=== PATIENT | male | born 1985 | race African-American/Black ===

== ENCOUNTER 2024-12-09 10:17 | Inpatient (IN) | payer BC, SELFPAY ==
[2024-12-09] VITALS (21 sets, daily range): BP systolic 112–190; BP diastolic 54–97; PULSE 72–86; BMI 45.1; BMI 44.3
[2024-12-09 03:38] LABS: Hematocrit 23.3 % (39.0-52.0); Hemoglobin 6.7 g/dL (13.0-18.0); Mean Corp Hgb Conc. 28.8 g/dL (33.0-37.0); Mean Corpuscular Volume 75.6 fL (80.0-94.0); Nucleated Red Blood Cells % 0 % (-); Platelet Count 356 10^3/uL (130-400); Red Cell Dist. Width 16.9 % (11.5-14.5)
[2024-12-09 03:58] LABS: ALT (SGPT) 14 U/L (0-50); AST (SGOT) 15 U/L (17-59); Albumin 4.4 g/dl (3.5-5.0); Alkaline Phosphatase 53 U/L (38-126); Blood Urea Nitrogen 19 mg/dl (9-20); Calcium 9.2 mg/dl (8.4-10.2); Carbon Dioxide 27 mmol/L (22-30); Chloride 107 mmol/L (98-107); Glucose 121 mg/dl (70-99); Potassium 4.2 mmol/L (3.5-5.1); Sodium 140 mmol/L (135-145); Total Protein 7.2 g/dl (6.3-8.2); eGFR > 60.00
[2024-12-09 04:05] LABS: Troponin I < 0.012 ng/ml
--- NOTE | 2024-12-09 06:31 | ED.GENMED ---
History of Present Illness
General
Chief Complaint: Breathing Problem
Source: patient
Exam Limitations: none
Time Seen by Provider: 12/09/24 06:09
History of Present Illness
History of Present Illness:
See MDM
Past History
Past History
ED Past Medical History: None
ED Past Surgical History: Other (Hernia Repair)
Social History
Tobacco: Non-smoker
Alcohol: None
Phy Exam
Physical Exam
Physical Exam:
See MDM
Course
Orders/Labs/Results
Orders:
Orders
12/09/24 02:38
Electrocardiogram (*1) Urgent
Reason for Study: Shortness of Breath
EKG- Treatment ONCE
Chest [CR Chest - 2 Views ] Urgent
Comment:
Reason For Exam: SHORT OF BREATH
12/09/24 03:19
Complete Blood Count/With Diff Urgent
Comprehensive Metabolic Panel Urgent
Iron Urgent
Comment: ADD ON
Total Iron Binding Urgent
Comment: ADD ON
Troponin I Urgent
12/09/24 06:21
Blood Bank Products [* Blood Bank Products] Urgent
's Orders: Devendra Moulton DO
Blood Bank Products: *Packed RBC Leuko(PRBC's)
Quantity: 2
Transfuse Today: Yes
Reason: Anemia
12/09/24 06:30
Add On- LAB Urgent
Tests Added?: Iron, TIBC
12/09/24 06:31
Type+Screen Urgent
12/09/24 07:13
ABO2 Routine
[employer] Wristband Number:
Associate notified that ABO2 has been ordered: [id number]
Date: 12/09/24
Time: 07:13
Front End Web Designer ID: [id number]
12/09/24 07:16
Consult Gastroenterology [GASTROINTESTINAL CONSULT] Routine
Consulting Provider: Cindy Lagunas
Was physician already notified: Yes
Abnormal Lab Results
12/09/24
03:19
RBC 3.08 L 10^6/uL
(4.70-6.10)
Hgb 6.7 L* g/dL
(13.0-18.0)
Hct 23.3 L %
(39.0-52.0)
MCV 75.6 L fL
(80.0-94.0)
MCH 21.8 L pg
(27.0-31.0)
MCHC 28.8 L g/dL
(33.0-37.0)
RDW 16.9 H %
(11.5-14.5)
Absolute Monos (auto) 0.7 H 10^3/uL
(0.1-0.6)
Glucose 121 H mg/dl
(70-99)
AST 15 L U/L
(17-59)
12/09/24 03:19
12/09/24 03:19
Vital Signs
Initial and Last Documented VS:
Initial Vital Signs
Temp Pulse Resp BP Pulse Ox
97.8 F 80 20 190/84 98
12/09/24 02:35 12/09/24 02:35 12/09/24 02:35 12/09/24 02:35 12/09/24 02:35
Last Documented Vital Signs
Temp Pulse Resp BP Pulse Ox
98.4 F 73 23 132/62 95
12/09/24 05:25 12/09/24 07:00 12/09/24 07:00 12/09/24 07:00 12/09/24 07:00
MDM/Problems Addressed
Differential Diagnosis Includes:
Note:
CHIEF COMPLAINT(S)
- Shortness of breath
- Chest constriction
- Dizziness
HISTORY OF PRESENT ILLNESS
The patient is a 39-year-old male who presents with shortness of breath, dizziness, and a sensation of constriction in the chest. These symptoms have been ongoing for approximately two to three weeks. The patient reports that the chest constriction
and shortness of breath are intermittent. He notes that he becomes easily winded during activities such as climbing stairs. He has been informed by his primary care physician of low hemoglobin levels. he states it was 7.7 a few days ago. The
patient denies recent occurrences of black or red stools, but he acknowledges seeing blood in his stool over a month ago. There is no recent history of fever or viral illnesses.
During the discussion, symptomatic anemia was identified due to low hemoglobin levels, explaining his fatigue and shortness of breath. An immediate plan for blood transfusion was proposed due to hemoglobin levels being less than 7 g/dL, indicating a
need for transfusion. The patient expressed understanding that the underlying causes of anemia could include blood loss, inadequate production, or increased destruction of red blood cells. However, concerns such as bone marrow issues were not highly
suspected since his white blood cells and platelets were reported as normal.
The patients condition was stable at presentation, and vital signs indicated compensation for chronic anemia. The patient has no family history of blood disorders except for a nephew with a history of aplastic anemia.
PHYSICAL EXAM
General: Alert, no acute distress.
Skin: Warm, dry.
Head: Normocephalic, atraumatic
Neck: Appears supple, trachea midline.
Eyes, Ears, Nose, Mouth, and Throat: Oral mucosa moist.
Cardiovascular: No signs of cyanosis. Regular rate and rhythm
Respiratory: Respirations are non-labored. Lungs clear
Rectal: Nonthrombosed external hemorrhoids. No stool in rectal vault. The clear mucus was mildly guaiac positive
Abdomen: Non-distended
Musculoskeletal: No deformities
Neurological: No focal neurological deficit observed.
Psychiatric: Cooperative, appropriate mood and affect.
PROBLEM LIST
- Acute: Symptomatic anemia with shortness of breath and chest constriction
PLAN
- Proceed with blood transfusion due to significant anemia (hemoglobin 6.7 g/dL)
- Consider follow-up with gastrointestinal specialists to explore potential sources of gastrointestinal bleeding
- Arrange for observation and monitoring to facilitate a comprehensive workup and ensure stability until blood levels improve
DIFFERENTIAL DIAGNOSIS
The Differential Diagnosis includes, in no particular order and is not limited to:
1. Iron deficiency anemia
2. Pernicious anemia
3. Gastrointestinal bleeding
4. Hemolytic anemia
5. Bone marrow disorders
6. Chronic kidney disease
7. Vitamin B12 deficiency
8. Folate deficiency
9. Anemia of chronic disease
10. Thalassemia
My independent EKG interpretation is:
- Rhythm: Sinus rhythm
- Heart rate: 85 beats per minute
- Dix: Normal axis
- Intervals: Within normal limits
- Abnormalities: No ST-segment elevation myocardial infarction (STEMI) detected
SUMMARY OF ENCOUNTER
The patient, a 39-year-old male, presented to the emergency department with symptoms of shortness of breath, chest constriction, and dizziness ongoing for approximately two to three weeks. Upon evaluation, symptomatic anemia was identified due to
significantly low hemoglobin levels of 6.7 g/dL. The patient was informed of the need for an immediate blood transfusion due to the anemia. Anemia is suspected to be related to gastrointestinal issues, possibly a source of bleeding as evidenced by a
mild amount of blood found on rectal examination.
DISPOSITION
Admit to the hospitalist service for further investigation and management.
ASSESSMENT
The patients symptoms of shortness of breath and dizziness, combined with low hemoglobin levels, indicate symptomatic anemia, likely secondary to gastrointestinal bleeding or other causes to be determined.
PLAN
- Administer two units of packed red blood cells due to significant anemia.
- Order iron studies to investigate possible iron deficiency anemia.
- Request a gastrointestinal evaluation to identify potential sources of bleeding.
- Admit to hospitalist service for continued observation and further diagnostic workup.
INDEPENDENT REVIEW OF LABS AND INTERPRETATION OF TESTS
My independent review of the hemoglobin levels indicates severe anemia with a value of 6.7 g/dL, necessitating blood transfusion.
MEDICATION RECONCILIATION
Administer two units of packed red blood cells.
MEDICAL DECISION MAKING
- Number and Complexity of Problems Addressed: Chronic conditions affecting care include symptomatic anemia with consideration of differential diagnoses: iron deficiency anemia, gastrointestinal bleeding, and others as previously listed.
- Data:
Category 1
- My independent EKG interpretation: Sinus rhythm, heart rate of 85 beats per minute, normal axis, intervals within normal limits, no STEMI detected.
Category 3
- Discussion of management with hospitalist for patient admission and further workup.
-Risk:
- Due to the severity of anemia, immediate hospitalization was required for stabilization via blood transfusion and further diagnostic evaluation.
DIAGNOSIS
1. Symptomatic anemia, ICD-10: D64.9
2. Iron deficiency anemia suspected, ICD-10: D50.9 (pending further studies)
3. Possible gastrointestinal bleeding, ICD-10: K92.2 (awaiting GI evaluation)
*Pulse Oximetry
SaO2: 98
Oxygen Mode of Delivery: Room air
Patient hypoxic: no
*Critical Care Note
Total Time (30-74mins, 75-104mins- exclusive of procedures): 33 min
comment:
The high probability of a clinically significant, sudden or life threatening deterioration of the cardiovascular and GI system(s) required my full and direct attention, intervention and personal management. The aggregate critical care time was 33
minutes. This time is in addition to time spent performing reported procedures but includes the following:
[x] Data Review and interpretation
[x] Patient assessment and monitoring of vital signs
[x] Documentation
[x] Medication orders and management
ED Attending Note
-
Portions of this chart may have been created with voice recognition software.� Occasional wrong word or��sound alike� substitutions may have occurred due to the inherent limitations of voice recognition software.
Discharge Plan
Departure
Patient Disposition: Admit
Date of Disposition: 12/09/24
Time of Disposition: 07:19
Admit to: Med/Surg
Presentation/result/management discussed w/ accepting MD/DO: Hospitalist
Discharge Problem:
Symptomatic anemia
Referrals:
KWAN PULIDO PA [Family Provider, Family Practice]
Interventions
Interventions:
*Risk Screen - Suicide Last Done: 12/09/24 02:35
*General Assessment Last Done: 12/09/24 05:09
*Neglect/Abuse Screening Last Done: 12/09/24 02:35
*ED- Fall Risk Assessment Last Done: 12/09/24 05:09
*ED COVID-19 Vaccine History Last Done: 12/09/24 05:09
ED- Cardiac Assessment Last Done: 12/09/24 05:09
ED- Pulmonary Assessment Last Done: 12/09/24 05:09
Discharge Date and Time
Print Language: GERMAN
[2024-12-09 07:31] LABS: Total Iron Binding Capacity 466 ug/dl (261-462)
[2024-12-09 07:32] LABS: Iron < 20 ug/dl (49-181)
--- NOTE | 2024-12-09 08:16 | HPS.HSE ---
Addendum entered and electronically signed by Mika Rizo MD 12/09/24 10:45:
I saw and evaluated the patient. I reviewed the resident�s note and agree with findings and plan as documented in the resident�s note.
Comment:
39-year-old male with no significant past medical history was presenting with complaints of shortness of breath, dizziness, fatigue ongoing for the past few weeks. Patient stated feeling fatigue and shortness of breath at rest and with exertion.
Denies any chest pain left substernal at rest or with exertion. Patient recently followed up with primary doctor and was informed of low hemoglobin level. Patient denies any caroline hematuria. Noticed some blood in his stool. Denies any abdominal
pain, nausea, vomiting. Denies taking NSAIDs on daily basis.
General: Well Developed, Well Nourished and No Apparent Distress
HEENT: NormoCephalic and Anicteric
Respiratory: Clear; No Wheezes, Rales or Rhonchi
Cardiac: S1/S2 and Regular Rhythm
GI: Soft, Non Tender, Non Distended and Normal Bowel Sounds
Musculoskeletal: No Clubbing and No Edema
Neuro: Awake, Alert, Oriented and AO x 3
Psych: Calm
Impression
Symptomatic anemia
Iron deficiency anemia
Obesity likely secondary to excess calories
Impaired glucose tolerance
Plan
Agree with transfusion with PRBC
Severely low iron deficient
Start IV iron
Check B12, folate and reticulocyte count
Clear liquid diet
Start PPI twice daily
Check A1c
If with any active episode of bleeding check CT angiogram
2 IV at all times
Gastroenterology evaluation with plan for endoscopy and colonoscopy on 12/10
Discussed with family member at bedside in details
I spent a total of 80 minutes with the patient or on the floor. More than 50% of this time involved counseling and coordination of care.
Original Note:
Family Physician
-
Family Physician: BRADLEY MÉNDEZ
Chief Complaint
-
Fatigue
History of Present Illness
This is a 39-year-old male with no significant past medical history who presents to the ED complaining of shortness of breath, chest pain, dizziness, fatigue ongoing for the past 3 weeks. The patient reports he has noted fatigue and shortness of
breath occur at rest and with exertion. He recently went to see his PCP who informed him of his low hemoglobin level. He reports hemoglobin was 7.7 and further workup was done at that time. In addition, patient admits episodes of seeing blood in
his stool. He reports episodes occur intermittently with the most recent episode as at 1 month ago. He reports blood in his stool and also when he wipes. He reports Bright red blood. Denies blood clots. Denies pain with stools. He admits
history of external hemorrhoids. He denies constipation, denies diarrhea. Reports one-time NSAID use 3 weeks ago, denies aspirin, denies any other medication intake. Denies alcohol use. 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
He denies history of colorectal cancer in family. He denies abdominal pain, fever, chills
Upon presentation to the ED, vitals with BP 190/84, pulse 80, temperature 97.8, O2 sat 90% on room air. Laboratory showed hemoglobin 6.7, hematocrit 23.3, platelet count 356. Iron level <20, TIBC 466. He was evaluated with a chest x-ray which was
unremarkable. EKG with normal sinus rhythm. He was noted to have nonthrombosed external hemorrhoids on rectal examination done in the ED
Medical History
Past Medical History
Past Medical History: Reports Other (External hemorrhoids)
Past Surgical History: Reports None
Social History
Tobacco: Non-smoker
Alcohol: None
Drug: Former User (Marijuana)
Personal:
Living: With Family
Employment: Employed
Family History
Family History: Not pertinent
Allergies / Home Medications
Allergies reflects when Allergies were last updated in [employer].
Home Medications with original date entered in [employer]
Allergy/Medication List:
Allergies
Allergy/AdvReac Type Severity Reaction Status Date / Time
Penicillins Allergy Unknown Verified 12/09/24 02:38
Home Medications
No Meds [No Current Medications] 12/09/24
Review of Systems
-
A 12 point ROS was completed and negative except as noted: Yes
Constitutional: Reports See HPI
EENT: Reports No Symptoms
Respiratory: Reports See HPI
Cardiac: Reports Chest Pain
Abdomen/GI: Denies Abdominal Pain or Nausea
: Reports No Symptoms
Musculoskeletal: Reports No Symptoms
Physical Exam
Vital Signs
Vital Signs
Temp Pulse Resp BP Pulse Ox
98.4 F 70 23 132/62 95
12/09/24 05:25 12/09/24 08:04 12/09/24 07:00 12/09/24 07:00 12/09/24 07:00
Physical Exam
General: Well Developed, Well Nourished and No Apparent Distress
HEENT: NormoCephalic and Anicteric
Respiratory: Clear; No Wheezes, Rales or Rhonchi
Cardiac: S1/S2 and Regular Rhythm
GI: Soft, Non Tender, Non Distended and Normal Bowel Sounds
Musculoskeletal: No Clubbing and No Edema
Neuro: Awake, Alert, Oriented and AO x 3
Psych: Calm
Laboratory Results
-
12/09/24 03:19
12/09/24 03:19
Laboratory Results
Total Bilirubin 0.3 mg/dl (0.2-1.3) 12/09/24 03:19
AST 15 U/L (17-59) L 12/09/24 03:19
ALT 14 U/L (0-50) 12/09/24 03:19
Alkaline Phosphatase 53 U/L (38-126) 12/09/24 03:19
Troponin I < 0.012 ng/ml 12/09/24 03:19
Impression/Plan
-
Assessment/plan
#Symptomatic anemia likely secondary to chronic blood loss from external hemorrhoids
-Symptomatic with fatigue, dizziness, chest pain, shortness of breath
-hemodynamically stable, vital signs stable
-2 units PRBC ordered in ED
-Start IV iron supplementation after transfusion
-GI consulted
-H&H Q12
-Check B12, folate, Retic.
-PPI 40mg IV BID
#Hypertension, likely reactive
-Initial BP 190/84, normalized to 132/62 without meds
-Monitor BP
#Obesity secondary to excess calories
-Affects all aspects of care, encouraged diet/exercise.
CODE STATUS full code
DVT prophylaxis SCDs
--- NOTE | 2024-12-09 09:50 | CON.GI ---
Addendum entered and electronically signed by Cindy Lagunas MD 12/09/24 14:08:
I saw and examined the patient.
The SHIP KEEPER or PA's note was reviewed and I agree with the note.
Comment:
This patient is a 39-year-old man with a history of hemorrhoids who was admitted for chest pain and dizziness and fatigue for 3 weeks. He was found to have a hemoglobin of 7 with iron deficiency. He does have heme positive stool in the ER. He
does not mention any other complaints except for intermittent rectal bleeding due to hemorrhoids. He did have a colonoscopy approximately 8 to 10 years ago for bleeding. He is never had an upper endoscopy.
abd: obese nontender
impression
hemorrhoids
iron def anemia
plan:
Follow hemoglobin
Would proceed with both upper endoscopy and colonoscopy for evaluation of iron deficiency anemia and bleeding. If hemorrhoids are truly the issue would have colorectal see him as an outpatient.
If both studies are normal we will then proceed with outpatient capsule endoscopy.
Original Note:
Consultation
-
Date/Time Consultation Requested: 12/09/2415
Date/Time Consultation Performed: 12/09/24 0950
Requesting Provider: Devendra Moulton DO
Performing Provider: ALTAF Foss, Cindy Lagunas MD
Reason for Consultation: anemia, rectal bleeding
Medical History
Chief Complaint / HPI
Chief Complaint: weakness recent rectal bleeding
History of Present Illness:
Pt is a 39yo with hx hemorrhoids with onset of shortness of breath with chest pain, dizziness, and fatigue for 3 weeks. He has recent OP hbg of 7 and repeat labs on admission with hbg 6.7 with MCV 75.6 and iron studies c/w iron deficiency. ER
rectal with clear mucous heme +. In review with patient and spouse hx abdominal pain and rectal bleeding in past with colonoscopy about 8 years ago at [place] with noted hemorrhoids. He changed his diet with some improved bleeding. He noted
about 1 month ago increased bright red blood per rectum and thought it was hemorrhoids but admits to increase amount. He then began with fatigue and shortness of breath worse with exertion prompting PCP then ER visit. he denies any change in
bowel habits. He also denies dysphagia, odynophagia, GERD, nausea, vomiting, abdominal pain, diarrhea, constipation or black stools. Denies NSAID use and only medication is MVI.
Social History
Tobacco: Non-Smoker
Alcohol: Occasional (rare)
Drug: None
Personal:
Living: With Family
Employment: Employed
Family History
Family History: Other (nephew with anaplastic anemia, no family hx colon CA, no family hx IBD)
Allergies / Home Medications
Allergy/AdvReac Type Severity Reaction Status Date / Time
Penicillins Allergy Unknown Verified 12/09/24 02:38
�Medication �Instructions �Recorded
No Meds [No Current Medications] 12/09/24
Review of Systems
-
History Source: Patient and Family
Constitutional: Reports No Symptoms
EENT: Reports No Symptoms
Respiratory: Reports Trouble Breathing
Cardiac: Reports Chest Pain
Abdomen/GI: Reports Bloody Stools
: Reports No Symptoms
Musculoskeletal: Reports No Symptoms
Skin: Reports No Symptoms
Neurological: Reports Weakness
Endocrine: Reports No Symptoms
Hematologic/Lymphatic: Reports Bleeding
Vital Signs
Temp Pulse Resp BP Pulse Ox
98.4 F 70 21 136/74 96
12/09/24 05:25 12/09/24 08:30 12/09/24 08:30 12/09/24 08:00 12/09/24 08:30
Physical Exam
Exam
General: Well Developed, Well Nourished and No Apparent Distress
HEENT: Normocephalic
Respiratory: Clear
Cardiac: Regular Rhythm
GI: Soft, Non Tender and Non Distended
Rectal: Hem Positive (mucous per ER-- declined repeat )
Skin: Warm and Dry
Neuro: Awake, Alert and AO x 3
Psych: Calm
Results
WBC 9.6 10^3/uL (4.8-10.8) 12/09/24 03:19
Hgb 6.7 g/dL (13.0-18.0) L* 12/09/24 03:19
Hct 23.3 % (39.0-52.0) L 12/09/24 03:19
MCV 75.6 fL (80.0-94.0) L 12/09/24 03:19
Plt Count 356 10^3/uL (130-400) 12/09/24 03:19
Absolute Neuts (auto) 5.9 10^3/uL (1.4-6.5) 12/09/24 03:19
Sodium 140 mmol/L (135-145) 12/09/24 03:19
Potassium 4.2 mmol/L (3.5-5.1) 12/09/24 03:19
Chloride 107 mmol/L (98-107) 12/09/24 03:19
Carbon Dioxide 27 mmol/L (22-30) 12/09/24 03:19
BUN 19 mg/dl (9-20) 12/09/24 03:19
Creatinine 0.9 mg/dL (0.7-1.3) 12/09/24 03:19
Calcium 9.2 mg/dl (8.4-10.2) 12/09/24 03:19
Total Bilirubin 0.3 mg/dl (0.2-1.3) 12/09/24 03:19
AST 15 U/L (17-59) L 12/09/24 03:19
ALT 14 U/L (0-50) 12/09/24 03:19
Alkaline Phosphatase 53 U/L (38-126) 12/09/24 03:19
Diagnostic Image Results:
12/09/24 CR Chest - 2 Views
No acute cardiopulmonary process.
Finalized.
Prior GI Procedures:
EGD: none
Colonoscopy: 8 years ago recall as normal
Assessment / Plan
-
Pt is a 39yo with hx hemorrhoids with onset of shortness of breath with chest pain, dizziness, and fatigue for 3 weeks. He has recent OP hbg of 7 and repeat labs on admission with hbg 6.7 with MCV 75.6 and iron studies c/w iron deficiency. ER
rectal with clear mucous heme +. In review with patient and spouse hx abdominal pain and rectal bleeding in past with colonoscopy about 8 years ago at [place] with noted hemorrhoids. He changed his diet with some improved bleeding. He noted
about 1 month ago increased bright red blood per rectum and thought it was hemorrhoids but admits to increase amount. He then began with fatigue and shortness of breath worse with exertion prompting PCP then ER visit. he denies any change in
bowel habits. He also denies dysphagia, odynophagia, GERD, nausea, vomiting, abdominal pain, diarrhea, constipation or black stools. Denies NSAID use and only medication is MVI.
-symptomatic iron deficiency anemia
-recent rectal bleeding
-hx hemorrhoids
-hx prior abdominal pain with stable colonoscopy 8 years ago
PLAN:
etiology of KARINA related to PUD, ectasia, mass vs other
plan for EGD/colon 12/10
agree with transfusion today before prep
follow hbg
cont PPI
add IV iron to start tomorrow after transfusion
family updated at bedside
-
-
Thank you for consultation and allowing me to participate in the patient's care. Please call the station manager GI physician during the after hours with any questions or concerns.
[2024-12-09 10:27] LABS: Reticulocyte Count 2.1 % (0.4-2.8)
--- NOTE | 2024-12-09 10:28 | CM ---
CM reviewed chart and met with pt bedside in ED. Lives with in 2 story home, 2 [address], first floor half BA, second floor BR/full BA
Independent in ADLs, personal care and ambulation at baseline, no assistive devices. Works as charter and tour bus driver.
Confirms prescription coverage.
No hx VN or SNF
PCP: Vane Conklin
Pharmacy: [facility], [place]
Anticipate discharge home, no needs. CM will continue to follow for any discharge planning needs
[2024-12-09 11:06] LABS: Glycohemoglobin (HgbA1c) 5.9 % (4.0-5.6)
[2024-12-09 11:22] LABS: TSH 3.13 uIU/ml (0.47-4.68)
[2024-12-09 11:26] LABS: Ferritin 4.8 ng/ml (17.9-464.0)
[2024-12-09 11:57] LABS: Folate > 20.0 ng/ml (2.76-20); Vitamin B12 360 pg/ml (239-931)
[2024-12-09 14:04] LABS: Hematocrit 27.3 % (39.0-52.0); Hemoglobin 7.8 g/dL (13.0-18.0)
[2024-12-09] MEDS: PROTONIX IV 40 MG IV ×2 (14:22→20:08)
[2024-12-09] MEDS: DULCOLAX 10 MG PO (14:23)
[2024-12-09] MEDS: NSS (PRESERVATIVE FREE) 10 ML IV ×2 (14:23→20:08)
[2024-12-09] MEDS: GAVILAX 238 GM PO (17:01)
[2024-12-09 21:47] LABS: Hematocrit 29.4 % (39.0-52.0); Hemoglobin 8.7 g/dL (13.0-18.0)
[2024-12-10] VITALS (9 sets, daily range): BP systolic 15–163; BP diastolic 55–90; PULSE 68–72; BMI 44.3
[2024-12-10] MEDS: GAVILAX 125 GM PO (04:32)
[2024-12-10 07:09] LABS: INR 1.10; PT 14.7 Sec (11.4-14.6)
[2024-12-10 07:18] LABS: ALT (SGPT) 15 U/L (0-50); AST (SGOT) 15 U/L (17-59); Albumin 4.2 g/dl (3.5-5.0); Alkaline Phosphatase 53 U/L (38-126); Blood Urea Nitrogen 10 mg/dl (9-20); Calcium 9.1 mg/dl (8.4-10.2); Carbon Dioxide 30 mmol/L (22-30); Chloride 104 mmol/L (98-107); Estimated Creatinine Clearance > 125 ml/min; Glucose 96 mg/dl (70-99); Potassium 4.3 mmol/L (3.5-5.1); Sodium 139 mmol/L (135-145); Total Protein 7.2 g/dl (6.3-8.2); eGFR > 60.00
[2024-12-10 07:43] LABS: Hematocrit 30.0 % (39.0-52.0); Hemoglobin 8.7 g/dL (13.0-18.0); Mean Corp Hgb Conc. 29.0 g/dL (33.0-37.0); Mean Corpuscular Volume 77.5 fL (80.0-94.0); Nucleated Red Blood Cells % 0 % (-); Platelet Count 400 10^3/uL (130-400); Red Cell Dist. Width 17.2 % (11.5-14.5)
[2024-12-10] MEDS: NSS (PRESERVATIVE FREE) 10 ML IV (08:19)
[2024-12-10] MEDS: PROTONIX IV 40 MG IV (08:20)
--- NOTE | 2024-12-10 10:44 | PTCARENOTE ---
unable to obtain orthostatic vital signs, pt is down getting endoscopy and colonoscopy
--- NOTE | 2024-12-10 10:49 | W.PN.UPDATE ---
Update Note
Progress Note Update
hemorrhoids otherwise egd/colonoscopy unremarkable
will do outpatient capsule
our office will call
will sign off
--- NOTE | 2024-12-10 12:07 | W.PN.HOSP.TC ---
Addendum entered and electronically signed by Mika Rizo MD 12/10/24 13:30:
Doing well post procedures. Denies any abdominal pain currently. Awaiting for lunch. Went over the endoscopy and colonoscopy results. Patient need to follow-up outpatient with gastroenterology for capsule endoscopy. Also recommended outpatient
hematology follow-up for iron deficiency and B12 deficiency. Also recommend to follow with primary doctor for elevated blood pressure. Plan for discharge later today after IV iron transfusion. Patient was agreeable to discharge planning.
More than 30 minutes spent in discharge including
Final examination of the patient
Summarizing hospital stay
Instructions for continuing care to all relevant caregivers
Preparation of discharge records, prescriptions, and referral forms
Total time spent (in minutes): 52
Original Note:
Today's Communication/Plan
-
Monitor for diet tolerance
IV iron while here
B12 supplementation
outpatient PCP follow-up for blood pressure
Assessment / Plan
Assessment / Plan
#Symptomatic anemia likely secondary to chronic blood loss from external hemorrhoids
-Symptomatic with fatigue, dizziness, chest pain, shortness of breath
# Iron and vitamin B12 deficiency
-hemodynamically stable, vital signs stable
- status post units of PRBC. Hemoglobin stable at 8.7.
- IV iron. Switch to p.o. iron on discharge.
-Status post endoscopy and colonoscopy without any acute finding. Plan for outpatient capsule endoscopy. If capsule endoscopy found to be negative then we will need outpatient hematology follow-up
-Also with B12 deficiency start on B12 supplementation
-Can DC further PPI.
#Hypertension, likely reactive
- Recommended outpatient PCP follow-up
#Obesity secondary to excess calories
-Affects all aspects of care, encouraged diet/exercise.
CODE STATUS full code
DVT prophylaxis SCDs
Anticipated Discharge: Today
Subjective/Interval History
-
Date of Service: December 10, 2024
No overnight events
Completed colonoscopy prep
Objective Data
-
Labs:
Laboratory Results
12/10/24
06:28
WBC 8.0
Hgb 8.7 L
Hct 30.0 L
Plt Count 400
PT 14.7 H
INR 1.10
Sodium 139
Potassium 4.3
Chloride 104
Carbon Dioxide 30
BUN 10
Creatinine 0.9
Glucose 96
Calcium 9.1
Total Bilirubin 0.8
AST 15 L
ALT 15
Alkaline Phosphatase 53
Vital Signs:
Vital Signs
Temp Pulse Resp BP Pulse Ox
96.8 F L 62 18 143/72 97
12/10/24 11:40 12/10/24 11:40 12/10/24 11:40 12/10/24 11:40 12/10/24 11:40
I&O
12/09/24 12/10/24 12/11/24
06:59 06:59 06:59
Intake Total 3380 / 3380
Balance 3380 / 3380
Physical Exam
-
General: Well Developed, Well Nourished and No Apparent Distress
HEENT: Normocephalic, Atraumatic and Moist Mucous Membranes
Respiratory: Non Labored Respirations
Breast: Deferred by me
GI: Nondistended
Rectal: Deferred by Provider
Skin: Warm
Neuro: Awake, Alert, Oriented, AO x 3 and No Motor Deficits; Negative Slurred Speech or Facial Droop
Psych: Calm
--- NOTE | 2024-12-10 13:30 | W.DCSUMMARY ---
Discharge Summary
Discharge Data
Date of Admission: 12/09/24
Date of Discharge: 12/10/24
-
Pending Results: Yes
Additional Pending Results:
Endoscopy and colonoscopy biopsy with gastroenterology
Hospital Course
39-year-old male with no significant past medical history who is presenting from home with fatigue and weakness. Patient was found to be severely anemic. Patient had outpatient blood work done and was found to have a low hemoglobin. Patient upon
admission was found to have hemoglobin of 6.7. Patient received 2 units of PRBC. Patient hemoglobin uptrend 8.7. Patient was also found to be severely iron deficient. Patient was also found to be B12 deficient. Supplementation of B12 and iron
was started. Endoscopy with normal esophagus, stomach which was biopsied. Normal duodenum biopsied. Colonoscopy with finding of hemorrhoids. Otherwise exam was normal throughout examined colon. Terminal ileum appeared normal. Postprocedure
patient did well. Patient was tolerating diet. Patient was also found to elevated blood pressure which was new finding and recommended to follow with primary doctor for further management. Patient will follow-up outpatient with gastroenterology
for capsule endoscopy. Also recommended follow-up with hematology.
Discharge Plan
-
Patient Disposition: Home (Routine Discharge)
Discharge Diagnosis/Procedures: Symptomatic anemia
Iron deficiency anemia
Vitamin B12 deficiency
Elevated blood pressure
Condition: Fair
Diet: As tolerated
Activity: As tolerated
Driving Restrictions: No driving for 24 hours
Referrals:
Cindy Lagunas MD [Active, Gastroenterology]
Referral Note: Follow-up for capsule endoscopy and follow-up on the biopsy results
Lee Mccord DO [Active, Hematology / Oncology] - in one to two months
Referral Note: Follow-up for iron deficiency and vitamin B12 deficiency anemia
KWAN PULIDO PA [Family Provider, Family Practice] - in less than 1 week
Prescriptions:
New
cyanocobalamin (vitamin B-12) [Vitamin B-12] 1,000 mcg Tablet
1,000 mcg PO DAILY Qty: 30 0RF
ferrous fumarate 324 mg (106 mg iron) tablet
324 mg PO DAILY Qty: 30 0RF
Discharge Orders:
Discharge Patient (As Directed); Ordered 12/10/24
Ordered By: Mika Rizo
Discharge Date and Time
Print Language: TURKMEN
[2024-12-10] MEDS: FERRLECIT 110 MG IV (13:53)
--- NOTE | 2024-12-10 14:53 | CM ---
CM reviewed chart, patient seen bedside with , reports no needs to CM at this time. Will continue to follow for all discharge planning needs.
Plan; home no needs anticipated
== END 2024-12-10 15:50 | disposition home or self-care (01) | DRG 812 ==
LOC: 4 WEST ACU 10:17
PROVIDERS: Nurse Practitioner Adult Health; Student in an Organized Health Care Education/Training Program; ADMITTING PHYSICIAN Hospitalist; CONSULT PHYSICIAN Internal Medicine; EMERGENCY PHYSICIAN Student in an Organized Health Care Education/Training Program; FAMILY PHYSICIAN Physician Assistant
PROC: 30233N1 Transfusion of Nonautologous Red Blood Cells into Peripheral Vein, Percutaneous Approach (ICD-10-PCS; 2024-12-09)
PROC: 0DB98ZX Excision of Duodenum, Via Natural or Artificial Opening Endoscopic, Diagnostic (ICD-10-PCS; 2024-12-10)
PROC: 0DJD8ZZ Inspection of Lower Intestinal Tract, Via Natural or Artificial Opening Endoscopic (ICD-10-PCS; 2024-12-10)
PROC: 0DB68ZX Excision of Stomach, Via Natural or Artificial Opening Endoscopic, Diagnostic (ICD-10-PCS; 2024-12-10)
DX: D50.0 Iron deficiency anemia secondary to blood loss (chronic) (principal); Z68.41 Body mass index [BMI] 40.0-44.9, adult; K62.5 Hemorrhage of anus and rectum; K64.4 Residual hemorrhoidal skin tags; K64.8 Other hemorrhoids; E53.8 Deficiency of other specified B group vitamins; K29.80 Duodenitis without bleeding; E66.09 Other obesity due to excess calories; I10 Essential (primary) hypertension; R73.02 Impaired glucose tolerance (oral); Z88.0 Allergy status to penicillin
CPT/HCPCS: 71046; 80053; 82607; 82728; 82746; 83036; 83540; 83550; 84443; 84484; 85014; 85018; 85025; 85045; 85610; 86850; 86900; 86901; 86920; 87070; 88305; 88342; 93005; 99291; J2916; P9016